=== PATIENT | female | born 1940 | race Caucasian/White ===

== ENCOUNTER 2016-11-07 05:40 | Emergency (ER) | payer OTHER, MEDICARE ==
[~2016-11-07] VITALS: Ht 162.6 cm; Wt 59.0 kg
[~2016-11-07 05:40] MED LIST: ASPIR 8181 MG PO; COZAAR 50 MG TA50 M2 PO; FOLIC ACID1 MG PO; HYDROCHLOROTHIA25 M2 PO; NORCO 5-325 TA1 EACH PO; REMICADE 1100 MG/VIA; SERTRALINE HCL50 MG PO
[2016-11-07 05:43] VITALS: BP 155/62
[2016-11-07] MEDS ORDERED: COZAAR 50 MG TA50 M2 PO (05:50)
[2016-11-07] MEDS ORDERED: SINGULAIR 10 MG10 M1 PO (05:52)
[2016-11-07] MEDS ORDERED: PREDNISONE 20 M20 MG PO (06:39)
== END 2016-11-07 06:48 | disposition home or self-care (01) ==
LOC: ER 05:40
DX: J44.1 Chronic obstructive pulmonary disease with (acute) exacerbation (principal); F10.99 Alcohol use, unspecified with unspecified alcohol-induced disorder; I10 Essential (primary) hypertension; Z87.891 Personal history of nicotine dependence; Z96.642 Presence of left artificial hip joint

== ENCOUNTER 2017-02-07 11:18 | Emergency (ER) | payer OTHER, MEDICARE ==
[~2017-02-07] VITALS: Ht 162.6 cm; Wt 59.0 kg
--- NOTE | ~2017-02-07 | EKG ---
[address] [address] ELECTROCARDIOGRAM REPORT Name: COLETTE KAMARA [facility] [id number] Admission: 02/07/17 Attend Phys: Discharge: 02/07/17 Date of : 44 Report #: [id number] THIS REPORT FOR: //name// [facility] ED Test Date: 2017-02-07 Test Time: 11:35:47 Pat Name: COLETTE KAMARA Department: Room: Gender: F Assistant Women'S Tennis Coach: LINDA : 1940 Requested By: Eric Hassan Order Number: [id number] MD: Jonatan Lyles Measurements Intervals [place] Rate: 75 P: 45 [place]: 145 QRS: -26 QRSD: 95 T: 11 QT: 413 QTc: 462 Interpretive Statements Sinus rhythm Borderline left axis deviation Compared to ECG 12/17/2016 14:41:52 No significant changes Electronically Signed On 02-08-2017 8:22:10 SURVEILLANCE MONITOR by Jonatan Lyles [email or web address] <ELECTRONICALLY SIGNED> By: Jonatan Lyles MD 02/08/17 0822 D: 125 1135 Jonatan Lyles MD /JOSH
[~2017-02-07 11:18] MED LIST changes: +PREDNISONE 20 M20 MG PO; +SINGULAIR 10 MG10 M1 PO
[2017-02-07 11:55] LABS: HEMATOCRIT 42.3 % (37.0-47.0); HEMOGLOBIN 14.4 gm/dL (12.0-15.0); MCH 32.2 pg (26.0-34.0); MCHC 33.9 g/dL (28.0-37.0); RBC 4.46 mil/uL (4.20-5.00); RDW 16.4 % (10.5-14.5); WBC 8.6 thou/uL (4.0-11.0)
[2017-02-07 11:58] LABS: ANION GAP 8 mmol/L (7-16); BUN 14 mg/dL (7-18); CALCIUM 8.7 mg/dL (8.5-10.1); CHLORIDE 101 mmol/L (98-107); CO2 28 mmol/L (21-32); GLUCOSE 142 mg/dL (74-106); POTASSIUM 3.8 mmol/L (3.5-5.1); SODIUM 137 mmol/L (136-145)
[2017-02-07 12:07] LABS: TROPONIN-I < 0.04 ng/mL (<0.06)
[2017-02-07 13:51] VITALS: BP 180/90
== END 2017-02-07 13:53 | disposition home or self-care (01) ==
LOC: ER 11:18
PROVIDERS: Emergency Medicine
DX: J44.9 Chronic obstructive pulmonary disease, unspecified (principal); R05 Cough; I10 Essential (primary) hypertension; Z98.890 Other specified postprocedural states; Z87.891 Personal history of nicotine dependence

== ENCOUNTER 2017-02-28 15:54 | Inpatient (IN) | payer OTHER, MEDICARE ==
[~2017-02-28] VITALS: Ht 162.6 cm; Wt 59.0 kg
--- NOTE | ~2017-02-28 | EKG ---
[address] [address] ELECTROCARDIOGRAM REPORT Name: SARIKA KAMARAKIIM Zhao Room #: 170-23 ADM IN .R.#: [id number] Admission: 02/28/17 Attend Phys: Franki Odom DO Discharge: Date of : 44 Report #: [id number] THIS REPORT FOR: //name// [facility] ED Test Date: 2017-02-28 Test Time: 17:11:55 Pat Name: COLETTE KAMARA Department: Room: 170 Gender: F Tactical Response Group Officer: MZOOEsteban : 1940 Requested By: Denise Yoo Order Number: [id number] MD: Aneesh Smith Measurements Intervals [place] Rate: 67 P: 79 [place]: 173 QRS: -22 QRSD: 93 T: 32 QT: 397 QTc: 419 Interpretive Statements Sinus rhythm Atrial premature complex Borderline left axis deviation Compared to ECG 02/07/2017 11:35:47 Atrial premature complex(es) now present Electronically Signed On 03-01-2017 7:29:22 TONG CARRIER by Aneesh Smith [email or web address] <ELECTRONICALLY SIGNED> By: Aneesh Smith MD, [facility] 03/01/17 0729 171 10 Aneesh Smith MD, [facility] /EPI
[2017-02-28 16:23] VITALS: BP 142/118
[2017-02-28 17:28] LABS: BE(vivo) 0.2 mmol/L (-2 to +3); HCO3 22.7 mmol/L (22.0-26.0); PCO2 31.1 mmHg (35.0-45.0); PO2 87.9 mmHg (80.0-100.0); pH 7.482 (7.360-7.450); sO2 97.3 % (92.0-98.0)
[2017-02-28 18:35] LABS: ABSOLUTE NEUTROPHILS 5.5 thou/uL (1.4-8.2); BASOPHILS 1.1 % (0.0-2.0); EOSINOPHILS 14.8 % (0.0-3.0); HEMATOCRIT 38.8 % (37.0-47.0); HEMOGLOBIN 13.3 gm/dL (12.0-15.0); MCH 31.6 pg (26.0-34.0); MCHC 34.2 g/dL (28.0-37.0); MCV 92.5 fL (80.0-100.0); MONOCYTES 5.9 % (1.0-8.0); PLATELET COUNT 407 thou/uL (150-400); POLYS 51.2 % (36.0-66.0); RDW 15.6 % (10.5-14.5); WBC 10.7 thou/uL (4.0-11.0)
[2017-02-28 18:45] LABS: ANION GAP 8 mmol/L (7-16); BUN 15 mg/dL (7-18); CALCIUM 8.9 mg/dL (8.5-10.1); CHLORIDE 102 mmol/L (98-107); CO2 29 mmol/L (21-32); CREATININE 1.1 mg/dL (0.6-1.0); GLUCOSE 237 mg/dL (74-106); SODIUM 139 mmol/L (136-145)
[2017-02-28 18:54] LABS: ALBUMIN 3.2 g/dL (3.4-5.0); SGOT 13 U/L (15-37); SGPT 17 U/L (30-65); TOTAL BILIRUBIN 0.5 mg/dL (<0.1-1.0); TOTAL PROTEIN 6.7 g/dL (6.4-8.2); TROPONIN-I < 0.04 ng/mL (<0.06)
[2017-02-28] MEDS ORDERED: AMBIEN 5 MG TABL5 M1 PO (21:50)
[2017-02-28] MEDS ORDERED: SERTRALINE HCL50 MG PO (21:50)
[2017-02-28] MEDS ORDERED: SINGULAIR 10 MG10 M1 PO (21:51)
[2017-02-28] MEDS ORDERED: COZAAR 50 MG TA50 M2 PO (21:51)
[2017-02-28] MEDS ORDERED: METHOTREXATE 22.5 MG PO (21:51)
[2017-02-28] MEDS ORDERED: ATIVAN0.5 MG PO (21:52)
[2017-02-28] MEDS ORDERED: HYDROCHLOROTHIA25 M1 PO (21:52)
[2017-02-28] MEDS ORDERED: ERGOCALCIF50000 UNIT PO (21:52)
[2017-02-28] MEDS ORDERED: FLONASE 0.05%50 MCG NASAL (21:52)
[2017-02-28] MEDS ORDERED: ALBUTEROL2.5 MG/31 INH (21:53)
[2017-02-28] MEDS ORDERED: VENTOLIN HFA 1818 GM INH (21:53)
[2017-03-01] VITALS (7 sets, daily range): BP systolic 114–152; BP diastolic 51–95
[2017-03-01 04:42] LABS: CALCIUM 8.7 mg/dL (8.5-10.1)
[2017-03-01 04:49] LABS: POTASSIUM 4.4 mmol/L (3.5-5.1)
[2017-03-02 03:43] VITALS: BP 126/66
[2017-03-02] MEDS ORDERED: KEFLEX500 M1 PO (08:27)
[2017-03-02] MEDS ORDERED: MEDROL DOSPAK21 TA1 PO (08:27)
[2017-03-02 09:38] VITALS: BP 137/63
[2017-03-02 12:50] VITALS: BP 137/63
== END 2017-03-02 15:02 | disposition home or self-care (01) | DRG 191 ==
LOC: ER 15:54 → EROBS 18:41 → 4S 03-01 12:26
PROVIDERS: Nurse Practitioner Family
DX: J44.1 Chronic obstructive pulmonary disease with (acute) exacerbation (principal); E44.1 Mild protein-calorie malnutrition; M06.9 Rheumatoid arthritis, unspecified; I10 Essential (primary) hypertension; Z96.642 Presence of left artificial hip joint; Z79.899 Other long term (current) drug therapy; Z87.891 Personal history of nicotine dependence
CPT/HCPCS: 10195

== ENCOUNTER 2017-04-08 14:35 | Emergency (ER) | payer OTHER, MEDICARE ==
[~2017-04-08] VITALS: Ht 162.6 cm; Wt 59.0 kg
--- NOTE | ~2017-04-08 | EKG ---
[address] [employer] [place] [address] ELECTROCARDIOGRAM REPORT Name: SARIKA KAMARAKIMI Zhao [facility] [id number] Admission: 04/08/17 Attend Phys: Discharge: 04/08/17 Date of : 44 Report #: [id number] THIS REPORT FOR: //name// [facility] ED Test Date: 2017-04-08 Test Time: 15:12:03 Pat Name: COLETTE KAMARA Department: Room: Gender: F Social Media Manager: Norberto [place] : 1940 Requested By: Gissel Mcqueen Order Number: [id number] MD: Aneesh Smith Measurements Intervals [place] Rate: 66 P: 92 DC: 161 QRS: -25 QRSD: 106 T: 25 QT: 420 QTc: 441 Interpretive Statements Sinus rhythm Borderline left axis deviation Compared to ECG 02/28/2017 17:11:55 Atrial premature complex(es) no longer present Electronically Signed On 04-09-2017 7:16:09 RETAIL ADMINISTRATIVE ASSISTANT by Aneesh Smith [email or web address] <ELECTRONICALLY SIGNED> By: Aneesh Smith MD, [facility] 04/09/17 0716 11 11 Aneesh Smith MD, [facility] /EPI
[~2017-04-08 14:35] MED LIST changes: +ALBUTEROL2.5 MG/31 INH; +AMBIEN 5 MG TABL5 M1 PO; +ATIVAN0.5 MG PO; +ERGOCALCIF50000 UNIT PO; +FLONASE 0.05%50 MCG NASAL; +HYDROCHLOROTHIA25 M1 PO; +KEFLEX500 M1 PO; +MEDROL DOSPAK21 TA1 PO; +METHOTREXATE 22.5 MG PO; +VENTOLIN HFA 1818 GM INH
[2017-04-08 15:48] LABS: BASOPHILS 1.1 % (0.0-2.0); EOSINOPHILS 8.6 % (0.0-3.0); HEMATOCRIT 43.4 % (37.0-47.0); HEMOGLOBIN 14.4 gm/dL (12.0-15.0); LYMPHOCYTES 25.1 % (24.0-44.0); MCH 30.8 pg (26.0-34.0); MCHC 33.3 g/dL (28.0-37.0); MCV 92.7 fL (80.0-100.0); MONOCYTES 8.6 % (1.0-8.0); PLATELET COUNT 322 thou/uL (150-400); POLYS 56.6 % (36.0-66.0); RBC 4.68 mil/uL (4.20-5.00); RDW 16.7 % (10.5-14.5); WBC 8.9 thou/uL (4.0-11.0)
[2017-04-08 15:56] LABS: ANION GAP 9 mmol/L (7-16); BUN 13 mg/dL (7-18); CALCIUM 9.1 mg/dL (8.5-10.1); CHLORIDE 106 mmol/L (98-107); CO2 29 mmol/L (21-32); CREATININE 0.8 mg/dL (0.6-1.0); GLUCOSE 115 mg/dL (74-106); POTASSIUM 3.3 mmol/L (3.5-5.1); SODIUM 144 mmol/L (136-145)
[2017-04-08 16:04] LABS: TROPONIN-I < 0.04 ng/mL (<0.06)
[2017-04-08] MEDS ORDERED: ZPAK PO (16:30)
[2017-04-08] MEDS ORDERED: PREDNISONE 20 M20 MG PO (16:30)
[2017-04-08] MEDS ORDERED: SYMBICORT80 MCG/4.1 INH (16:30)
[2017-04-08 17:08] VITALS: BP 114/95
== END 2017-04-08 17:10 | disposition home or self-care (01) ==
LOC: ER 14:35
PROVIDERS: Emergency Medicine
DX: J44.1 Chronic obstructive pulmonary disease with (acute) exacerbation (principal); I10 Essential (primary) hypertension; M19.90 Unspecified osteoarthritis, unspecified site; Z96.642 Presence of left artificial hip joint; Z87.891 Personal history of nicotine dependence

== ENCOUNTER 2018-05-24 23:44 | Inpatient (IN) | payer OTHER, MEDICARE ==
[~2018-05-24] VITALS: Ht 162.6 cm; Wt 59.9 kg
[~2018-05-24 23:44] MED LIST changes: +SYMBICORT80 MCG/4.1 INH; +ZPAK PO
[2018-05-24 23:45] VITALS: BP 129/61
[2018-05-25 02:25] LABS: HEMATOCRIT 40.2 % (37.0-47.0); HEMOGLOBIN 13.7 gm/dL (12.0-15.0); MCH 32.7 pg (26.0-34.0); MCHC 34.1 g/dL (28.0-37.0); MCV 95.8 fL (80.0-100.0); RBC 4.2 mil/uL (4.20-5.00); RDW 14.6 % (10.5-14.5); WBC 10.9 thou/uL (4.0-11.0)
[2018-05-25 02:32] VITALS: BP 91/72
[2018-05-25 02:35] LABS: CREATININE 0.9 mg/dL (0.6-1.0); POTASSIUM 3.1 mmol/L (3.5-5.1)
[2018-05-25 02:38] LABS: URINE BILIRUBIN NEGATIVE (Negative); URINE BLOOD TRACE (Negative); URINE CLARITY CLEAR; URINE COLOR YELLOW; URINE GLUCOSE-RANDOM* NEGATIVE (Negative); URINE KETONES NEGATIVE (Negative); URINE LEUKOCYTES-REFLEX TRACE (Negative); URINE NITRITE-REFLEX NEGATIVE (Negative); URINE PROTEIN (DIPSTICK) NEGATIVE (Negative); URINE SPECIFIC GRAVITY 1.015 (1.005-1.035); URINE UROBILINOGEN 0.2 E.U./dl (0.2-1.0)
[2018-05-25 03:15] VITALS: BP 91/72
[2018-05-25 03:30] VITALS: BP 126/70
--- NOTE | 2018-05-25 04:39 | NUR ---
PT ARRIVED ON UNIT FROM ER AT 0330. ADMITTED FROM HOME WITH LEFT HIP PAIN R/T RECENT FALLS. VOIDING PER BEDPAN. TRAMADOL PROVIDING PAIN RELIEF. RESTING COMFORTABLY. NO NEEDS VOICED. CALL LIGHT WITHIN REACH. WILL CONTINUE TO PROVIDE FREQUENT OBSERVATION.
[2018-05-25 07:30] VITALS: BP 125/90
[2018-05-25 19:13] VITALS: BP 108/52
--- NOTE | 2018-05-25 19:43 | NUR ---
ASSUMED CARE OF PT AT 0700. ASSESSMENT CHARTED. A&O,X4. C/0 LEFT HIP PAIN, PAIN MEDS GIVEN ORDERED. SMAL LEFT BRUISE NOTED FROM RECENT FALL. HIGH FALL PRECAUTIONS IN PLACE. DENIES ANY OTHER CONCERNS. NO SOA OR CHEST PAIN. ROOM AIR. LBM YESTERDAY. SKIN INTACT. PT IN STABLE CONDITION. TRANSFERRED X1 TO CHAIR TODAY. PT RESTING IN BED NOW. END OF SHIFT.
[2018-05-26 03:30] VITALS: BP 126/58
[2018-05-26 06:40] LABS: CALCIUM 8.7 mg/dL (8.5-10.1); POTASSIUM 3.5 mmol/L (3.5-5.1)
--- NOTE | 2018-05-26 07:41 | NUR ---
Assumed care at 1845. Pt resting in bed. Still having pain when ambulating. X1 assist to bedside commode. A0X4. Last BM today. On RA. IV L FA Saline Lock. No identifed needs at the moment. Will continue to monitor.
[2018-05-26 08:00] VITALS: BP 98/74
[2018-05-26 13:34] LABS: CHOLESTEROL 163 mg/dL (<200); HDL CHOLESTEROL 59 mg/dL (>40); LDL CHOLESTEROL 86 mg/dL (<100); TC:HDL 2.8 Ratio (Not establshd); TRIGLYCERIDE 92 mg/dL (<150); VLDL 18 mg/dL (<40)
--- NOTE | 2018-05-26 14:17 | 2DMMODE ---
[facility] [place] [address] 2 D/M-MODE ECHOCARDIOGRAM Name: KAMARACOLETTE [facility] Room #: 454-P ADM IN M.R.#: [id number] ������������� Admission: 05/25/18 ������������� Attend Phys: Shweta Pierre Discharge: ��� ������������� ��� Date of : 44 Date of Service: 05/26/18 1416 �� Report #: [id number] �������� ��������������������������������������������[id number] THIS REPORT FOR: //name// APPROVED REPORT Study performed: 05/26/2018 13:08:00 EXAM: Comprehensive 2D, Doppler, and color-flow Echocardiogram Patient Location: Bedside Room #: 454 Status: routine BSA: 1.61 HR: 71 bpm BP: 98/74 mmHg Rhythm: NSR Other Information Study Quality: Technically DifficultTechnically Limited Technically limited study due to lung disease, inability to position patient. Indications COPD Syncope Hypertension/HDD 2D Dimensions IVC: 19.00 mm Aortic Valve AoV Peak Esequiel.: 1.20 m/s AO Peak Gr.: 5.74 mmHg Left Ventricle The left ventricle is normal size. There is normal left ventricular wall thickness. The left ventricular systolic function is normal. LVEF is 55-60%. This study is not technically sufficient to allow evaluation of the LV diastolic function. Right Ventricle The right ventricle is normal size. The right ventricular systolic function is normal. Atria The left atrium size is normal. The right atrium size is [facility] [address] [place] [address] 2 D/M-MODE ECHOCARDIOGRAM Name: COLETTE KAMARA CADY Room #: 454-P ADM IN M.R.#: [id number] ������������� Admission: 05/25/18 ������������� Attend Phys: Shweta Pierre Discharge: ��� ������������� ��� Date of : 44 Date of Service: 05/26/18 1416 �� Report #: [id number] �������� ��������������������������������������������[id number] normal. Aortic Valve The aortic valve is normal in structure. Trace aortic regurgitation. There is no aortic valvular stenosis. Mitral Valve The mitral valve is normal in structure. There is no mitral valve regurgitation noted. Tricuspid Valve The tricuspid valve is normal in structure. There is no tricuspid valve regurgitation noted. Pulmonic Valve The pulmonary valve is normal in structure. There is no pulmonic valvular regurgitation. Great Vessels The aortic root is normal in size. IVC is normal in size and collapses >50% with inspiration. Pericardium Trace anterior pericardial effusion. <Conclusion> Technically difficult study The left ventricle is normal size. There is normal left ventricular wall thickness. The left ventricular systolic function is normal. The right ventricle is normal size. The left atrium size is normal. Trace aortic regurgitation. There is no mitral valve regurgitation noted. There is no tricuspid valve regurgitation noted. ��������������������������������������������� <ELECTRONICALLY SIGNED> ���������������������������������������� By: Jhoan Smalls MD ��������������������������������������������� 05/26/18 1416 1416 1416 Jhona Smalls MD /CHUCK
[2018-05-26 15:00] VITALS: BP 118/72
--- NOTE | 2018-05-26 16:00 | NUR ---
PT AD MITTED RELATED TO LEFT HIP PAIN. CMREVIEWED CHART AND SPOKE WITH CARE TEAM. CM MET WITH PT AT BEDSIDE THIS DAY. PT IS A&O X4. CM ROLE INTRODUCED. PT INDICATED SHE LIVES IN A HOUSE WITH HER SPOUSE WITH 5 STEPS TO ENTER AND NO STEPS INSIDE. PT INDICATED SHE HAS A FWW AND A CANE THAT SHE CAN USE TO ASSIST WITH MOBILITY SHOULD SHE NEED IT UPON DC. 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 PT INDICATED SHE PLANS TO RETURN HOME ONCE MEDICALLY STABLE. CM TO FOLLOW INDICATED WITH DC PLANNING.
[2018-05-26 19:34] VITALS: BP 126/66
--- NOTE | 2018-05-27 04:40 | NUR ---
Assumed care at 1845. Pt resting in bed. VSS. AOX4. On room air. No skin issues. Has been ambulating to bedside commode with X1 assist with cane and gait belt. Anxious to hear her diagnostic results. No identified need at the moment. Fall precautions in place. Will continue to monitor.
[2018-05-27 08:07] VITALS: BP 133/70
[2018-05-27 14:10] VITALS: BP 146/78
[2018-05-27 17:18] LABS: ALBUMIN 3.4 g/dL (3.4-5.0); CALCIUM 8.9 mg/dL (8.5-10.1); CREATININE 0.8 mg/dL (0.6-1.0); TOTAL BILIRUBIN 1.1 mg/dL (<0.1-1.0); TOTAL PROTEIN 6.9 g/dL (6.4-8.2)
[2018-05-27 17:25] LABS: APTT 27.5 Seconds (24.5-32.8); PROTIME 10.2 Seconds (9.3-11.4)
--- NOTE | 2018-05-27 18:14 | NUR ---
PT STABLE THROUGHOUT SHIFT. PT TO HAVE PROCEDURE 05/29, CONSENT SIGNED AND ON CHART. PT HAD NO COMPLAINTS, RESTING COMFORTABLY.
[2018-05-27 20:10] VITALS: BP 147/65
[2018-05-28 03:15] VITALS: BP 141/68
--- NOTE | 2018-05-28 04:05 | NUR ---
PT SLEPT MOST OF THE NIGHT PT USED CALL LIGHT EFFECTIVELY NO ISSUES OVERNIGHT.
[2018-05-28 07:15] VITALS: BP 133/67
--- NOTE | 2018-05-28 08:01 | EKG ---
[address] [place] [address] ELECTROCARDIOGRAM REPORT Name: COLETTE KAMARA Room #: 454-P ADM IN M.R.#: [id number] ������������������ Admission: 05/25/18 ������������������ Attend Phys: Shweta Abraham Discharge: ������������������ Date of : 44 Report #: [id number] ����������������������������������������������������������������� [id number] THIS REPORT FOR: //name// [facility] Test Date: 2018-05-27 Test Time: 19:28:11 Pat Name: COLETTE KAMARA Department: Room: 454 P Gender: F Roll Former: Wilma ARROYO : 1940 Requested By: Jakub Fan Order Number: [id number] MD: Aneesh Smith Measurements Intervals [place] Rate: 67 P: 76 [place]: 180 QRS: -32 QRSD: 98 T: 62 QT: 404 QTc: 427 Interpretive Statements Sinus rhythm Atrial premature complex Left axis deviation Compared to ECG 04/08/2017 15:12:03 Atrial premature complex(es) now present Electronically Signed On 05-28-2018 8:00:54 CDT by Aneesh Smith [email or web address] ��������������������������������������������� <ELECTRONICALLY SIGNED> ���������������������������������������� By: Aneesh Smith MD, [facility] ��������������������������������������������� 05/28/1800 27 27 Aneesh Smith MD, [facility] /EPI
--- NOTE | 2018-05-28 10:36 | NUR ---
TOWARDS POC PT A/O X4, VSS, AFEBRILE, DENIES PAIN, NO NV. FALL BUNDLE IN PLACE. NPO AT TX FOR PROCEDURE IN AM. NO CONCERNS VOICED, WILL CONTINUE TO MONITOR.
[2018-05-28 13:05] VITALS: BP 144/66
[2018-05-28 19:42] VITALS: BP 124/63
[2018-05-29] VITALS (19 sets, daily range): BP systolic 60–146; BP diastolic 38–89
--- NOTE | 2018-05-29 02:15 | NUR ---
PT NPO SINCE MIDNIGHT PT USED CALL LIGHT EFFECTIVELY NO ISSUES OVERNIGHT.
--- NOTE | 2018-05-29 11:42 | NUR ---
XFER PT WENT TO SURGERY BEFORE SHIFT CHANGE. REPORT CALLED TO ICU NURSE. PT WILL GO TO ROOM 238.
--- NOTE | 2018-05-29 14:10 | NUR ---
PATIENT IN ICU FROM RECOVERY ROOM THIS AFTERNOON. ALERT AND ORIENTED-BILAT HEARING AIDES. VITALS STABLE, A-LINE ON LEFT RADIAL. PATIENT DENIES PAIN. DIEUDONNE DRESSING LEFT NECK WITH SMALL DRIED DRAINAGE. REINFORCED BY LUISA. UPDATED AND ICU GUIDELINES AND PRIVACY CODE GIVEN.
--- NOTE | 2018-05-29 17:48 | NUR ---
UP TO CHAIR WITH MINIMAL ASSISTANCE, TOLERATED WELL. MEDICATED FOR PAIN WITH PRN MEDS. TOLERATING DINNER, DENIES NAUSEA.
[2018-05-30] VITALS (16 sets, daily range): BP systolic 100–141; BP diastolic 36–75
[2018-05-30 06:12] LABS: HEMATOCRIT 32.5 % (37.0-47.0); MCH 32.5 pg (26.0-34.0); MCHC 33.9 g/dL (28.0-37.0); MCV 95.9 fL (80.0-100.0); RBC 3.39 mil/uL (4.20-5.00); WBC 10.9 thou/uL (4.0-11.0)
[2018-05-30 06:27] LABS: CALCIUM 7.9 mg/dL (8.5-10.1); CREATININE 0.7 mg/dL (0.6-1.0)
--- NOTE | 2018-05-30 06:40 | NUR ---
PT AOX4. ON 2L NC DURING THE NIGHT. MEDICATED FOR NECK PAIN, WARM COMPRESSION AND ICE PACKS OFFERED TO PT TO AIDE WITH PAIN. DIEUDONNE DRESSING IN PLACE, DRAINAGE NOTED. URINE OUTPUT NOTED. UP TO CHAIR WITH ONE ASSIST. NO COMPLAINS PRESENTLY. WILL CONTINUE TO MONITOR.
[2018-05-30 08:26] LABS: MAGNESIUM 1.9 mg/dL (1.8-2.4)
[2018-05-30] MEDS ORDERED: ASPIR 8181 MG PO (08:33)
[2018-05-30] MEDS ORDERED: ACETAMINOPHEN325 M1 PO (08:33)
[2018-05-30] MEDS ORDERED: COZAAR 50 MG TA50 M1 PO (08:33)
--- NOTE | 2018-05-30 12:58 | NUR ---
ALERT AND ORIENTED, UP TO THE CHAIR AND WALKED WITH P.T. BITALS STABLE. MEDICATED EARLIER FOR PAIN WITH PRN MEDS. TOLERATING DIET. ESCALONA DC'D AND PATIENT ABLE TO VOID THIS AFTERNOON. A-LINE DC'D. DIEUDONNE DRESSING ON NECK CHANGED BY LUISA THIS MORNING. PATIENT WAITING TO DC HOME AFTER DR. TYSON ROUNDS THIS AFTERNOON.
--- NOTE | 2018-05-30 14:52 | NUR ---
DC ORDERS RECEIVED FROM YAHIR MORAN'Norberto DC'D, DC INSTRUCTIONS AND APPOINTMENT CARDS GIVEN TO PATIENT AND SPOUSE. PATIENT TAKEN TO CAR VIA WHEELCHAIR.
--- NOTE | 2018-05-30 16:05 | PATH ---
[facility] [address] [place] [address] PATHOLOGY RPT PROCEDURE Name: NINA KAMARA CADY Room #: 238-P DIS IN M.R.#: [id number] ������������������ Admission: 05/25/18 ������������������ Date of : 44 Discharge: 05/30/18 Report #: [id number] Path Case #: [id number] [facility] Accession Number: [id number] . 01 Material submitted: . carotid body - LEFT CAROTID PLAQUE. Modifiers: right . 01 Clinical history: . Carotid stenosis, left . 02 Diagnosis: Left carotid plaque, carotid endarterectomy: - Fragments of vessel wall associated with extensive myxoid degeneration and calcific sclerotic plaque material. . (IUV:mml; 05/30/2018) QLM/05/30/2018 . 02 Electronically signed: . Dina Rees MD, Pathologist NPI- [id number] . 01 Gross description: . The specimen is received in formalin, labeled "Nina Kamara, left carotid plaque". Received is a segment of lightly calcified pale galarza plaque measuring 3.8 cm in length and ranges in diameter from 1.0 to 1.3 cm. The specimen is submitted representatively in cassette A1, following light decalcification. (CAA; 05/29/2018) QAC/QAC . 02 Pathologist provided ICD-10: I65.22 . 02 CPT . 253045, 330447 Specimen Comment: A courtesy copy of this report has been sent to Specimen Comment: [phone], , , . Specimen Comment: Report sent to ,DR BOOGIE,DR BILL / DR CARDOZA Performed at: [address], [place], [place] [id number] MD Hardik Darby MD Phone: [phone] Performed at: [address] [id number] MD Dina Rees MD Phone: [phone]
--- NOTE | 2018-06-02 16:53 | HC ---
[facility] [place] [address] CONSULTATION Name: COLETTE KAMARA CADY Room #: 238-P [facility] IN M.R.#: [id number] Admission: 05/25/18 ������������������ Attend Phys: Shweta Abraham Discharge: 05/30/18 ������������������ Date of : 44 Report #: [id number] THIS REPORT FOR: //name// CC: Shweta Ellington Askov DATE OF SERVICE: 05/27/2018 We were asked to see the patient by Dr. Shweta Abraham. HISTORY OF PRESENT ILLNESS: The patient is a 77-year-old with history of syncope. The patient was seen in the Emergency Department on 05/25/2018 complaining of recent falls and pain in the left leg. The fall occurred when she was walking out of the kitchen and the left leg gave out. The patient remembers the incident and denies loss of consciousness. There is also a history of a syncopal episode at her chiropractor 5 days prior causing her to fall off the table perfect. Since admission, we noted the hospital duplex exam was done that shows a tight right internal carotid stenosis lesion. PAST MEDICAL HISTORY: Significant for rheumatoid arthritis, hypertension and chronic bronchitis. MEDICATIONS: At home includes sertraline, folic acid, aspirin, Remicade, Singulair, Cozaar, and hydrochlorothiazide. There are scripts for cephalexin, Medrol Dosepak, Symbicort and prednisone. ALLERGIES: None known. SOCIAL HISTORY: The patient is a tobacco user in the past. She lives at home with her . REVIEW OF SYSTEMS: CONSTITUTIONAL: Complains of fatigue. HEENT: Complains of vertigo. Decreased hearing. No nose or throat complaints. RESPIRATORY: Some shortness of breath with exertion. No dyspnea, no orthopnea, wheeze. CARDIAC: Denies chest pain or sputum production. GASTROINTESTINAL: No nausea, vomiting, diarrhea or blood. GENITOURINARY: No burning, urgency, frequency, or blood. NEUROLOGIC: No motor or sensory dysfunction. PSYCHIATRIC: No hallucination or depression. MUSCULOSKELETAL: As mentioned, the patient was admitted with pain in the left leg. She is treated for rheumatoid arthritis, but denies other joint problems currently. [facility] [address] [place] [place] [address] CONSULTATION Name: COLETTE KAMARA [facility] Room #: 238-P [facility] IN [facility].#: [id number] Admission: 05/25/18 ������������������ Attend Phys: Shweta Abraham Discharge: 05/30/18 ������������������ Date of : 44 Report #: [id number] ENDOCRINE: No goiter, no tremors. PHYSICAL EXAMINATION: VITAL SIGNS: Blood pressure 133/70, heart rate 76, respiratory rate 14, temperature 36.7, O2 sat 93 on room air. GENERAL: The patient is a healthy, but mildly sarcopenic older woman. HEENT: Normocephalic. Pupils are round, equal to accommodation. NECK: No mass. 2+ high pitched left neck bruit audible. CHEST: Wheezing audible on inspiration, left side. CARDIOVASCULAR: Irregular rhythm. No murmurs audible. ABDOMEN: Soft, no mass. EXTREMITIES: 2+ popliteal pulses, no obvious saphenous vein problems. SKIN: No rash or infection. MUSCULOSKELETAL: No obvious bone or joint dissymmetry or deformity. NEUROLOGIC: No obvious motor or sensory dysfunction. PSYCHIATRIC: Pleasant woman. Mood is appropriate shows insight into problem. IMPRESSION: The patient had syncopal episode with high-grade left internal carotid stenosis. We have recommended imaging study, CT angiogram has been ordered. We will review and advise based on the results of this. Thank you for the consult. ��������������������������������������������� <ELECTRONICALLY SIGNED> ���������������������������������������� By: Jakub Fan MD ��������������������������������������������� 06/02/18 1653 1434 0130 Jakub Fan MD /nt
--- NOTE | 2018-06-02 16:53 | O ---
[facility] [place] [address] OPERATIVE REPORT Name: COLETTE KAMARA CADY Room #: 238-P [facility] IN M.R.#: [id number] Admission: 05/25/18 ������������������ Attend Phys: Shweta Abraham Discharge: 05/30/18 ������������������ Date of : 44 Report #: [id number] THIS REPORT FOR: //name// CC: Shweta Ellington Dovray DATE OF SERVICE: 05/29/2018 PREOPERATIVE DIAGNOSIS: Left carotid artery stenosis. POSTOPERATIVE DIAGNOSIS: Left carotid artery stenosis. PROCEDURE: Left carotid endarterectomy with patch closure. SURGEON: Jakub Fan MD WELDING EQUIPMENT REPAIRER SUPERVISOR: JACK Cisse. ANESTHESIA: General. INDICATIONS: The patient is a 77-year-old with 95% left internal carotid stenosis. The patient presents with multiple syncopal episodes. The right carotid has trivial disease. FINDINGS AND TECHNIQUE: After general anesthesia was established, an oblique left neck incision was made. Common facial vein was divided. Common internal and external carotid arteries were identified and controlled; 10,000 units of heparin were given. Continuous electroencephalographic monitoring was performed during the operation. When the carotid vessels were occluded, no EEG changes were noted. The carotid arteriotomy was made. The endarterectomy was performed without creating a distal flap. Neointima was inspected and all loose debris was removed. Tacking sutures were placed at the transition zone. When the endarterectomy was deemed to be satisfactory, the arteriotomy was closed with thin walled pericardial patch and running Prolene. Prior to finishing the closure, the carotid vessels were backbled and the artery was irrigated with heparinized saline. Flow was established first through the external, then the internal carotid artery. 50 mg of protamine was given. When hemostasis was satisfactory, a drain was brought out through the bottom pole of the incision and the wound was closed in [facility] [address] [place] [address] OPERATIVE REPORT Name: COLETTE KAMARA [facility] Room #: 238-P [facility] IN .RAbby#: [id number] Admission: 05/25/18 ������������������ Attend Phys: Shweta Abraham Discharge: 05/30/18 ������������������ Date of : 44 Report #: [id number]. The patient was taken to the recovery area where her neurologic progress was monitored. All counts reported as correct. ��������������������������������������������� <ELECTRONICALLY SIGNED> ���������������������������������������� By: Jakub Fan MD ��������������������������������������������� 06/02/18 1653 1113 1214 Jakub Fan MD /nt
== END 2018-05-30 14:15 | disposition home or self-care (01) | DRG 39 ==
LOC: ER 23:44 → 4W 05-25 01:56 → EROBS 05-25 01:56 → 4W 05-25 03:11 → ICU 05-29 11:40
PROVIDERS: Emergency Medicine; Nurse Practitioner Family; Physician Assistant; Surgery Vascular Surgery; ADMIT Hospitalist
PROC: 03UL0KZ Supplement Left Internal Carotid Artery with Nonautologous Tissue Substitute, Open Approach (ICD-10-PCS; principal; 2018-05-29)
PROC: 03CL0ZZ Extirpation of Matter from Left Internal Carotid Artery, Open Approach (ICD-10-PCS; principal; 2018-05-29)
DX: I65.22 Occlusion and stenosis of left carotid artery (principal); Z96.642 Presence of left artificial hip joint; M06.9 Rheumatoid arthritis, unspecified; I10 Essential (primary) hypertension; E87.6 Hypokalemia; F32.9 Major depressive disorder, single episode, unspecified; I95.9 Hypotension, unspecified; Z79.82 Long term (current) use of aspirin; Z87.891 Personal history of nicotine dependence; Z79.899 Other long term (current) drug therapy; W18.39XA Other fall on same level, initial encounter; Y93.89 Activity, other specified; Y92.89 Other specified places as the place of occurrence of the external cause; Y99.8 Other external cause status
CPT/HCPCS: 10040; 10204; 47375; 48888; 50010; 50101; 50386; 50417; 50455; 51301; 51751; 52279; 56524; 56526; 56528; 56531; 56534; 62110; 62900; 70005

== ENCOUNTER 2018-12-25 12:20 | Emergency (ER) | payer OTHER, MEDICARE ==
[~2018-12-25] VITALS: Ht 162.6 cm; Wt 59.0 kg
[~2018-12-25 12:20] MED LIST changes: +ACETAMINOPHEN325 M1 PO; +COZAAR 50 MG TA50 M1 PO
[2018-12-25 12:28] VITALS: BP 168/60
[2018-12-25] MEDS ORDERED: DIOVAN160 MG PO (12:38)
[2018-12-25] MEDS ORDERED: METHOTREXATE 22.5 M1 PO (12:39)
[2018-12-25] MEDS ORDERED: PREDNISONE 5 MG5 MG PO (12:39)
== END 2018-12-25 13:15 | disposition home or self-care (01) ==
LOC: ER 12:20
DX: S01.112A Laceration without foreign body of left eyelid and periocular area, initial encounter (principal); S51.012A Laceration without foreign body of left elbow, initial encounter; S61.412A Laceration without foreign body of left hand, initial encounter; I10 Essential (primary) hypertension; M06.9 Rheumatoid arthritis, unspecified; E11.9 Type 2 diabetes mellitus without complications; Z87.891 Personal history of nicotine dependence; W10.0XXA Fall (on)(from) escalator, initial encounter; Y92.89 Other specified places as the place of occurrence of the external cause; Y93.89 Activity, other specified; Y99.8 Other external cause status